=== PATIENT | male | born 1980 | race Two or more races ===

== ENCOUNTER 2018-09-03 15:41 | Emergency (ER) | payer MEDICAID, OTHER ==
[~2018-09-03] VITALS: Ht 177.8 cm; Wt 77.1 kg
[2018-09-03 16:20] VITALS: BP 147/98
[2018-09-03] MEDS ORDERED: HYDROcodone-ACET 5/325MG TAB PO ONE (17:00)
[2018-09-03] MEDS ORDERED: cefTRIAXone 1GM/50ML D5W 50 ML IV ONE (17:15)
== END 2018-09-03 18:02 | disposition home or self-care (01) ==
LOC: ER 15:52
DX: S61.431A Puncture wound without foreign body of right hand, initial encounter (principal); L08.9 Local infection of the skin and subcutaneous tissue, unspecified; F17.210 Nicotine dependence, cigarettes, uncomplicated; W26.8XXA Contact with other sharp object(s), not elsewhere classified, initial encounter; Y93.89 Activity, other specified; Y99.8 Other external cause status; Y92.89 Other specified places as the place of occurrence of the external cause
CPT/HCPCS: 10060; 96365; 99283; J0696

== ENCOUNTER 2019-06-09 10:49 | Emergency (ER) | payer MEDICAID ==
[~2019-06-09] VITALS: Ht 177.8 cm; Wt 77.1 kg
[2019-06-09 11:14] VITALS: BP 159/94
== END 2019-06-09 16:09 | disposition left against medical advice (07) ==
LOC: EDBD 10:49 → ER 10:54
DX: L02.91 Cutaneous abscess, unspecified (principal); Z53.21 Procedure and treatment not carried out due to patient leaving prior to being seen by health care provider

== ENCOUNTER 2020-04-02 14:07 | Emergency (ER) | payer MEDICAID ==
[~2020-04-02] VITALS: Ht 182.9 cm; Wt 77.1 kg
[2020-04-02 14:29] VITALS: BP 161/97
== END 2020-04-02 16:32 | disposition left against medical advice (07) ==
LOC: ER 14:07 → EDBD 14:07 → ER 16:32
DX: R53.1 Weakness (principal); Z53.21 Procedure and treatment not carried out due to patient leaving prior to being seen by health care provider

== ENCOUNTER 2021-05-20 22:38 | Emergency (ER) | payer MEDICAID ==
[~2021-05-20] VITALS: Ht 172.7 cm; Wt 77.1 kg
[2021-05-20 23:15] VITALS: BP 160/90
== END 2021-05-21 06:49 | disposition left against medical advice (07) ==
LOC: EDBD 22:38 → ER 22:40
DX: R41.0 Disorientation, unspecified (principal); Z53.21 Procedure and treatment not carried out due to patient leaving prior to being seen by health care provider
CPT/HCPCS: 93005